=== PATIENT | male | born 1975 | race Caucasian/White ===

== ENCOUNTER 2021-02-08 18:58 | Emergency (ER) | payer OTHER, SELFPAY ==
[~2021-02-08] VITALS: Ht 175.3 cm; Wt 94.2 kg
--- NOTE | 2021-02-08 23:30 | REPVR ---
PROCEDURE INFORMATION: Exam: CT Lumbar Spine Without Contrast Exam date and time: 02/08/2021 10:19 PM Age: 45 years old Clinical indication: Low back pain; Additional info: L sided back pain, tingling down leg TECHNIQUE: Imaging protocol: Computed tomography images of the lumbar spine without contrast. Radiation optimization: All CT scans at this facility use at least one of these dose optimization techniques: automated exposure control; mA and/or kV adjustment per patient size (includes targeted exams where dose is matched to clinical indication); or iterative reconstruction. COMPARISON: No relevant prior studies available. FINDINGS: Vertebrae: No acute fracture. Normal alignment. L1-L2: Slight interspace narrowing without significant posterior disc protrusion. There is minimal facet arthropathy and no spinal or foraminal stenosis. L2-L3: Slight interspace narrowing with slight retrolisthesis and loss of posterior concavity consistent with minimal diffuse bulge. There is mild right posterolateral protrusion with associated osteophytes which extend into the right neural foramen. No significant facet arthropathy and no spinal stenosis. There is mild right neural foraminal stenosis. L3-L4: Mild interspace narrowing with mild broad-based posterior protrusion of the disc with loss of posterior concavity. There is minimal facet arthropathy with posterolateral disc protrusions with associated osteophytes, left greater than right. No spinal stenosis. There is borderline bilateral neural foraminal stenosis. L4-L5: Mild interspace narrowing with minimal Schmorl's defect in the inferior endplate of L4 and minimal posterior broad-based protrusion of the disc with no significant facet arthropathy. There is low normal size of the spinal canal and mild bilateral neural foraminal stenosis. L5-S1: Mild interspace narrowing with minimal posterior protrusion osteophytes and minimal facet arthropathy. There is mild right posterolateral protrusion with osteophytes extending to the neural foramen. The spinal canal is of adequate size. There is borderline left and mild right neural foraminal stenosis. Appendix: A normal appendix is seen. Vasculature: Incidental note of a retroaortic left renal vein. Soft tissues: Unremarkable. IMPRESSION: 1. Degenerative disc changes with no significant spinal stenosis. There are varying degrees of multilevel neural foraminal stenosis. 2. No acute fracture or subluxation. Electronically signed by: Osiel Woo On 02/08/2021 23:30:26 PM
--- NOTE | 2021-02-08 23:31 | REPVR ---
PROCEDURE INFORMATION: Exam: US Duplex Left Lower Extremity Veins, Limited Exam date and time: 02/08/2021 10:56 PM Age: 45 years old Clinical indication: Pain; Leg, lower; Left; Additional info: Pain L calf and popliteal space, RO dvt TECHNIQUE: Imaging protocol: Real-time Duplex ultrasound of the Left Lower Extremity with 2-D palumbo scale, color Doppler flow and spectral waveform analysis with image documentation. Limited exam focused on the left lower extremity veins. COMPARISON: US Duplex, Ext,LOWER veins,unilat 09/20/2015 3:38 AM FINDINGS: Left deep veins: Unremarkable. The common femoral, femoral, proximal profunda femoral and popliteal veins are patent without thrombus. Normal Doppler waveforms. Normal compressibility and/or augmentation response. Left superficial veins: Unremarkable. Saphenofemoral junction is patent without thrombus. Soft tissues: Unremarkable. IMPRESSION: Negative left lower extremity venous duplex exam without evidence of deep venous thrombosis. Electronically signed by: Osiel Woo On 02/08/2021 23:30:59 PM
[2021-02-08] MEDS ORDERED: METH-1165 PO (23:39)
[2021-02-09] VITALS: BP 154/89
== END 2021-02-09 00:03 | disposition home or self-care (01) ==
LOC: M ED 18:58
DX: M54.30 Sciatica, unspecified side (principal); M99.53 Intervertebral disc stenosis of neural canal of lumbar region

== ENCOUNTER 2024-08-14 19:47 | Observation (INO) | payer OTHER ==
[~2024-08-14] VITALS: Ht 175.3 cm; Wt 81.1 kg
[~2024-08-14 19:47] MED LIST: METH-1165 PO
[2024-08-15] VITALS (7 sets, daily range): BP systolic 125–134; BP diastolic 75–88; TEMP 97–97.9; O2SAT 93–97
[2024-08-15] MEDS: ONDANSETRON 4MG 2ML VIAL IV ONE (01:47)
[2024-08-15] MEDS: MORPHINE 4 MG/ML 1ML VIAL IV ONE (01:48)
[2024-08-15] MEDS ORDERED: ceFAZolin SOD 2 GM in IV 1 EA IV ONE (03:25)
[2024-08-15] MEDS: LIDOCAINE 2% MDV 20ML VIAL SC ONE (03:30)
[2024-08-15] MEDS: ceFAZolin SODIUM 2 GM in DEXTROSE 5% (D5W) ADV/MINI-BAG 50 ML IV ONE (04:00)
[2024-08-15] MEDS ORDERED: HOME MED LIST COMPLETE! XX SCH (05:55)
[2024-08-15 06:40] LABS: BASO # 0.1 10^3/uL (0.0-0.2); BASO % 0.7 % (0.0-1.0); EOS # 0.1 10^3/uL (0.0-0.5); EOS % 1.6 % (0.0-3.0); HEMATOCRIT 44.4 % (42.0-52.0); HEMOGLOBIN 15.2 g/dl (13.5-17.5); LYMPH # 1.5 10^3/uL (1.5-5.0); LYMPH % 21.1 % (24.0-44.0); MEAN CORPUSCULAR HGB CONC 34.2 g/dl (32.0-36.5); MEAN CORPUSCULAR VOLUME 87.6 fl (80.0-96.0); MONO # 0.5 10^3/uL (0.0-0.8); MONO % 7.3 % (2.0-8.0); NEUTROPHILS # 4.8 10^3/uL (1.5-8.5); PLATELET COUNT, AUTOMATED 269 10^3/uL (150-450); RED BLOOD COUNT 5.07 10^6/uL (4.30-6.10)
[2024-08-15] MEDS: BOOSTRIX VACCINE (TETANUS/DIPHTH/ACEL. PERTUSSIS) 0.5ML SYR IM.IMMUN ONE (06:41)
[2024-08-15 06:54] LABS: INR 0.92; PARTIAL THROMBOPLASTIN TIME 28.9 SECONDS (24.8-34.2); PROTHROMBIN TIME 12.7 SECONDS (12.5-14.5)
[2024-08-15 07:17] LABS: BLOOD UREA NITROGEN 15 MG/DL (9-23); CALCIUM LEVEL 9.4 MG/DL (8.5-10.1); CARBON DIOXIDE LEVEL 27 MMOL/L (20-31); CHLORIDE LEVEL 107 MMOL/L (98-107); CREATININE FOR GFR 1.16 MG/DL (0.70-1.30); GLOMERULAR FILTRATION RATE > 60.0 (>56); GLUCOSE, FASTING 99 MG/DL (60-100); POTASSIUM SERUM 4.4 MMOL/L (3.5-5.1); SODIUM LEVEL 141 MMOL/L (136-145)
[2024-08-15] MEDS: ACETAMINOPHEN 325 MG TAB PO PRN (08:04)
[2024-08-15] MEDS ORDERED: NALOXONE INJ 0.4MG/1ML VIAL IV PRN ×2 (10:35→16:30)
[2024-08-15] MEDS ORDERED: MORPHINE 2 MG/ML 1ML VIAL IV PRN ×2 (10:35→16:45)
[2024-08-15] MEDS ORDERED: D5W/0.45% SODIUM CHLORIDE 1,000 ML IV SCH (10:35)
[2024-08-15] MEDS ORDERED: fentaNYL 100 MCG/2 ML INJECTION As Ordered ONE (11:36)
[2024-08-15] MEDS ORDERED: MIDAZOLAM INJ 2MG/2ML VIAL As Ordered ONE (11:36)
[2024-08-15] MEDS ORDERED: ONDANSETRON 4MG 2ML VIAL As Ordered ONE (11:37)
[2024-08-15] MEDS ORDERED: LIDOCAINE 2% 100MG/5ML SDV (FOR ANES.) As Ordered ONE (11:37)
[2024-08-15] MEDS ORDERED: propofoL 200 MG/20 ML VIAL As Ordered ONE (11:37)
[2024-08-15] MEDS: LR 1,000 ML IV ONE (11:40)
[2024-08-15] MEDS: KETOROLAC 30 MG/ML 1ML VIAL IV ONE (11:40)
[2024-08-15] MEDS: ceFAZolin SODIUM 2 GM VIAL As Ordered ONE (13:13)
[2024-08-15] MEDS: TRANEXAMIC ACID 100 MG/ML 10ML VIAL As Ordered ONE (13:23)
[2024-08-15] MEDS ORDERED: ePHEDrine SULFATE 25 MG/5 ML(5MG/ML) SYRINGE As Ordered ONE (13:25)
[2024-08-15] MEDS ORDERED: KETOROLAC 30 MG/ML 1ML VIAL As Ordered ONE (13:28)
[2024-08-15] MEDS ORDERED: ACETAMINOPHEN 1000MG/100ML IV BAG As Ordered ONE (13:28)
[2024-08-15] MEDS: LIDOCAINE 1% MDV 20ML VIAL As Ordered ONE (13:35)
[2024-08-15] MEDS: BUPivacaine LIPOSOME/PF 266MG 20ML VIAL (13.3MG/ML)(EXPAREL) As Ordered ONE (13:50)
[2024-08-15] MEDS: LR 1,000 ML IV SCH ×2 (14:35→17:25)
[2024-08-15] MEDS ORDERED: fentaNYL 100 MCG/2 ML INJECTION IV PRN (14:35)
[2024-08-15] MEDS ORDERED: oxyCODONE 5MG TAB PO PRN (14:35)
[2024-08-15] MEDS ORDERED: HYDROMORPHONE HCL 0.5 MG/ 0.5 ML SYRINGE IV PRN (14:35)
[2024-08-15] MEDS: ONDANSETRON 4MG 2ML VIAL IV PRN (15:29)
[2024-08-15] MEDS ORDERED: PERCOCET 5MG/325MG TAB PO PRN ×2 (16:30)
[2024-08-15] MEDS: cefTRIAXone SOD 2 GM in DEXTROSE 5% (D5W) ADV/MINI-BAG 50 ML IV SCH (16:35)
[2024-08-15] MEDS: KETOROLAC 30 MG/ML 1ML VIAL IV SCH (20:30)
[2024-08-16] VITALS: BP 122/70; TEMP 98.1; O2SAT 95
[2024-08-16 04:00] VITALS: BP 137/78; TEMP 98.1; O2SAT 95
[2024-08-16] MEDS ORDERED: PERC5TAB12 PO (07:07)
[2024-08-16] MEDS ORDERED: CEFD1CAP9 PO (07:09)
[2024-08-16] MEDS ORDERED: IBUP-1022 PO (07:09)
[2024-08-16] MEDS ORDERED: SENO8.6T10 PO (07:09)
[2024-08-16] MEDS ORDERED: ASPI81TA26 PO (07:35)
[2024-08-16] MEDS ORDERED: MORPHINE 2 MG/ML 1ML VIAL IV PRN (07:45)
[2024-08-16 07:59] LABS: BASO % 0.3 % (0.0-1.0); EOS # 0.1 10^3/uL (0.0-0.5); EOS % 0.6 % (0.0-3.0); HEMOGLOBIN 14.3 g/dl (13.5-17.5); LYMPH # 1.4 10^3/uL (1.5-5.0); MEAN CORPUSCULAR HEMOGLOBIN 30.1 pg (27.0-33.0); MEAN CORPUSCULAR VOLUME 88.4 fl (80.0-96.0); MONO # 0.7 10^3/uL (0.0-0.8); MONO % 6.1 % (2.0-8.0); NEUTROPHILS % 80.5 % (36.0-66.0); PLATELET COUNT, AUTOMATED 250 10^3/uL (150-450); RED BLOOD COUNT 4.75 10^6/uL (4.30-6.10); WHITE BLOOD COUNT 11.2 10^3/uL (4.0-10.0)
[2024-08-16 08:07] LABS: ERYTHROCYTE SEDIMENTATION RATE 10 mm/hr (0-20)
[2024-08-16] MEDS: KETOROLAC 30 MG/ML 1ML VIAL IV ONE (08:07)
[2024-08-16] MEDS: ASPIRIN 81MG ENTERIC TABLET PO SCH (08:07)
[2024-08-16] MEDS: PERCOCET 5MG/325MG TAB PO ONE (08:25)
[2024-08-16 08:27] LABS: C REACTIVE PROTEIN QUANTITATIV < 0.50 MG/DL (<1.0)
[2024-08-16 08:34] LABS: PROCALCITONIN <0.04 ng/ml
[2024-08-16 08:36] LABS: BLOOD UREA NITROGEN 17 MG/DL (9-23); CALCIUM LEVEL 8.3 MG/DL (8.5-10.1); CARBON DIOXIDE LEVEL 27 MMOL/L (20-31); CHLORIDE LEVEL 107 MMOL/L (98-107); CHOLESTEROL LEVEL 164 MG/DL (<200); CHOLESTEROL RISK RATIO 3.51 (<5); CREATININE FOR GFR 1.16 MG/DL (0.70-1.30); GLOMERULAR FILTRATION RATE > 60.0 (>56); GLUCOSE, FASTING 119 MG/DL (60-100); HDL CHOLESTEROL 46.6 MG/DL (>40); LDL CHOLESTEROL 98.4 MG/DL (<100); NON-HDL-C 117.4 MG/DL; POTASSIUM SERUM 4.4 MMOL/L (3.5-5.1); SODIUM LEVEL 143 MMOL/L (136-145); TRIGLYCERIDES LEVEL 95 MG/DL (<150)
[2024-08-16 09:04] LABS: HEMOGLOBIN A1c 4.6 % (4.0-6.0)
== END 2024-08-16 09:45 | disposition home or self-care (01) ==
LOC: M ED 19:47 → M ED INP 19:48 → M MS5PR 08-15 16:20
PROVIDERS: ADMIT Student in an Organized Health Care Education/Training Program; ATTEND General Practice
DX: S62.522B Displaced fracture of distal phalanx of left thumb, initial encounter for open fracture (principal); W23.0XXA Caught, crushed, jammed, or pinched between moving objects, initial encounter; Y92.69 Other specified industrial and construction area as the place of occurrence of the external cause; Y93.I9 Activity, other involving external motion; Y99.0 Civilian activity done for income or pay; I10 Essential (primary) hypertension; H83.3X3 Noise effects on inner ear, bilateral; Z87.891 Personal history of nicotine dependence
CPT/HCPCS: 11760; 26765; 36415; 73130; 76000; 80048; 80061; 83036; 84145; 84443; 85025; 85610; 85652; 85730; 86140; 90471; 90715; 93005; 96374; 96375; 96376; 99285; J0131; J0665; J0690; J0696; J1100; J1885; J2250; J2405; J3010

== ENCOUNTER → 2024-08-19 | Outpatient (CLI) | payer OTHER ==
[~2024-08-19] MED LIST changes: +ASPI81TA26 PO; +CEFD1CAP9 PO; +IBUP-1022 PO; +PERC5TAB12 PO; +SENO8.6T10 PO
== END ==
LOC: M SOG 07:56
PROVIDERS: ATTEND Physician Assistant
DX: M79.645 Pain in left finger(s) (principal)

== ENCOUNTER → 2024-08-28 | Outpatient (CLI) | payer OTHER | LOC: M SOG 07:52 | PROVIDERS: ATTEND Physician Assistant | DX: S62.522A Displaced fracture of distal phalanx of left thumb, initial encounter for closed fracture (principal) ==

== ENCOUNTER → 2024-09-14 | Outpatient (CLI) | payer OTHER | LOC: M SOG 07:55 | PROVIDERS: ATTEND Physician Assistant | DX: M79.645 Pain in left finger(s) (principal) ==

== ENCOUNTER → 2024-10-02 | Outpatient (CLI) | payer OTHER | LOC: M SOG 07:26 | PROVIDERS: ATTEND Physician Assistant | DX: M79.645 Pain in left finger(s) (principal) ==

== ENCOUNTER → 2025-02-01 | Outpatient (CLI) | payer OTHER ==
[~2025-02-01] MED LIST changes: -IBUP-1022 PO; +IBUP600T42 PO
== END ==
LOC: M SOG 07:38
PROVIDERS: ATTEND Physician Assistant
DX: M79.645 Pain in left finger(s) (principal)